=== PATIENT | female | born 1980 | race Caucasian/White ===

== ENCOUNTER 2018-08-16 17:57 | Emergency (ER) | payer MEDICAID ==
[~2018-08-16] VITALS: Ht 172.7 cm; Wt 99.8 kg
[2018-08-16] MEDS ORDERED: CEFDINIR300 MG PO (18:12)
[2018-08-16 18:37] LABS: ABSOLUTE EOSINOPHILS 0.3 thou/uL (0.0-0.7); ABSOLUTE LYMPHOCYTES 1.6 thou/uL (0.8-5.3); ABSOLUTE MONOCYTES 0.4 thou/uL (0.0-1.2); ABSOLUTE NEUTROPHILS 2.9 thou/uL (1.6-8.1); BASOPHILS 0.4 %; EOSINOPHILS 5.2 %; HEMATOCRIT 39.1 % (37.0-47.0); HEMOGLOBIN 13.2 gm/dL (12.0-15.0); LYMPHOCYTES 31.5 %; MCH 30.4 pg (26.0-34.0); MCHC 33.8 g/dL (28.0-37.0); MCV 89.8 fL (80.0-100.0); MONOCYTES 8.4 %; MPV 7.6 fl. (7.2-11.1); NUCLEATED RBCS 0 /100WBC; PLATELET COUNT* 252 thou/uL (150-400); POLYS 54.5 %; RBC 4.36 mil/uL (4.20-5.00); RDW-CV 12.9 % (10.5-14.5); WBC 5.2 thou/uL (4.0-11.0)
[2018-08-16 18:46] LABS: ALBUMIN 3.3 g/dL (3.4-5.0); CALCIUM 8.8 mg/dL (8.5-10.1); CREATININE 0.8 mg/dL (0.6-1.3); POTASSIUM 3.3 mmol/L (3.5-5.1); TOTAL BILIRUBIN 0.2 mg/dL (<0.1-1.0); TOTAL PROTEIN 7.2 g/dL (6.4-8.2)
[2018-08-16] MEDS ORDERED: AZITHROMYCIN 2250 MG PO (19:14)
[2018-08-16 19:52] VITALS: BP 125/67
== END 2018-08-16 19:52 | disposition home or self-care (01) ==
LOC: M.ERS 17:57
PROVIDERS: Nurse Practitioner Family
DX: E87.6 Hypokalemia (principal); J06.9 Acute upper respiratory infection, unspecified